=== PATIENT | female | born 1940 | race Caucasian/White ===

== ENCOUNTER 2022-05-18 08:19 | Observation (INO) ==
--- NOTE | 2022-04-21 10:09 | PAT Medication Instructions ---
Medication Instructions Date of Service April 21, 2022 Home Medications amlodipine 2.5 mg tablet 2.5 mg PO QAM aspirin 81 mg capsule 81 mg PO QAM calcium carb-vitamin D3 ER 600 mg (1,500 mg)-500 unit tablet,ER 24 hr 1 tab PO BID lisinopril 20 mg tablet 20 mg PO BID loratadine 10 mg tablet (Claritin) 10 mg PO QAM metoprolol succinate 50 mg tablet,extended release 24 hr 50 mg PO QPM sennosides 8.6 mg-docusate sodium 50 mg tablet (Senna Plus) 2 tab PO BID simvastatin 40 mg tablet 40 mg PO HS tramadol 50 mg tablet 50 mg PO BID DO NOT take the morning of surgery calcium carb-vitamin D3 ER 600 mg (1,500 mg)-500 unit tablet,ER 24 hr 1 tab PO BID lisinopril 20 mg tablet 20 mg PO BID loratadine 10 mg tablet (Claritin) 10 mg PO QAM sennosides 8.6 mg-docusate sodium 50 mg tablet (Senna Plus) 2 tab PO BID Take morning of surgery With a small sip of water, OTHERWISE NOTHING TO EAT OR DRINK AFTER MIDNIGHT: amlodipine 2.5 mg tablet 2.5 mg PO QAM aspirin 81 mg capsule 81 mg PO QAM (continue as normal unless told otherwise by surgeon) tramadol 50 mg tablet 50 mg PO BID Take evening before surgery calcium carb-vitamin D3 ER 600 mg (1,500 mg)-500 unit tablet,ER 24 hr 1 tab PO BID lisinopril 20 mg tablet 20 mg PO BID metoprolol succinate 50 mg tablet,extended release 24 hr 50 mg PO QPM sennosides 8.6 mg-docusate sodium 50 mg tablet (Senna Plus) 2 tab PO BID simvastatin 40 mg tablet 40 mg PO HS tramadol 50 mg tablet 50 mg PO BID Other Notes If you have any questions please call us at [phone] or [phone] or [phone] or [phone]
--- NOTE | 2022-04-22 09:17 | Anesthesiology Consultation ---
Date of Service April 22, 2022 Assessment & Plan (1) Encounter for pre-operative examination: - PCP office visit (02/24/22): "We did provide the patient with lab orders for CMP.. CBC.. urinalysis along with a chest xray. Once her lab analyses are completed as well as her cardiac consultation.. We will then be able to provide medical clearance for proposed surgery)" > CMP, CBC, urinalysis, chest x-ray done 02/25/2022 were unremarkable. - Cardiology office visit (03/02/22): " She has no evidence of volume overload or heart failure. Blood pressure is controlled. She also denies complaints of palpitations or episodes of SVT. Additional cardiac testing is not required prior to surgery.. whether or not to d/c ASA will be left to the surgeon's discretion.. Patient stable from a cardiac standpoint and would be considered low cardiac risk for planned surgery." - COVID screening: Per assessment on 04/22: No known COVID-19 positive contacts or current COVID-19 related symptoms. Travel screen negative. Patient vaccinated. Surgeon arranging preop COVID testing. Awaiting results. Chart Review Chart Review: Acceptable Risk for Surgery and Patient seen in Pre Admission Testing Teaching & Discussion Pre-Anesthesia Teaching/Discussion Notes: Instructed NPO after midnight before surgery,except medications with 15 cc of water. Medication instructions provided according to the PAT guidelines. History Surgery Operation Date: 05/18/22 13:10 Proposed Procedures p Left Total Knee Arthroplasty - Enrique Lantigua DO Height/Weight Height: 5 ft 6 in Weight: 68.5 kg Allergies Allergy/AdvReac Type Severity Reaction Status Date / Time adhesive Allergy Mild Skin Verified 04/22/22 09:08 redness Medications Home Medications Medication Instructions Recorded Confirmed Last Taken amlodipine 2.5 mg tablet 2.5 mg PO QAM 04/20/22 04/20/22 Unknown aspirin 81 mg capsule 81 mg PO QAM 04/20/22 04/20/22 Unknown calcium carb-vitamin D3 ER 600 mg 1 tab PO BID 04/20/22 04/20/22 Unknown (1,500 mg)-500 unit tablet,ER 24 hr lisinopril 20 mg tablet 20 mg PO BID 04/20/22 04/20/22 Unknown loratadine 10 mg tablet (Claritin) 10 mg PO QAM 04/20/22 04/20/22 Unknown metoprolol succinate 50 mg 50 mg PO QPM 04/20/22 04/20/22 Unknown tablet,extended release 24 hr sennosides 8.6 mg-docusate sodium 2 tab PO BID 04/20/22 04/20/22 Unknown 50 mg tablet (Senna Plus) simvastatin 40 mg tablet 40 mg PO HS 04/20/22 04/20/22 Unknown tramadol 50 mg tablet 50 mg PO BID 04/20/22 04/20/22 Unknown Past Medical History Medical History CAD (coronary artery disease) Mild non-obstructive per 2016 cardiac cath Follows with [facility] Depression 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 Hyperlipidemia Hypertension Osteoarthritis SVT (supraventricular tachycardia) Exercise / Class Metabolic Activity II 4-5 Yardwork/Stairs/Walk up hill Past Surgical History Surgical History History of anesthesia reaction Slow to wake (hip surgery) History of cardiac cath 2015 ([facility]) > no stents History of dilatation and curettage x2 History of total right hip arthroplasty 1996 Hx of cataract extraction R/L Hx of colonoscopy Past Anesthesia History No Family Hx of Anesthesia Complications and Other (Slow to wake (hip surgery)) History of PONV No Hx of PONV and No Hx of Motion Sickness Social History Smoking Status: Former smoker Do You Dip or Chew Tobacco: No Smoking End Date: Quit 1977 Hx Alcohol Use: Yes Alcohol type: wine alcohol intake frequency: holidays/special occasions only Hx Substance Use: No substance use type: does not use Review of Systems Patient denies chest pain, shortness of breath, dyspnea on exertion, reflux, cough, wheezing, palpitations. Physical Exam Vital Signs VITALS BP 133/74 P 74 TEMP 98.1 SP02 99%RA RESP 16 PHYSICAL Mildly decreased cervical extension range of motion. Full TMJ range of motion. TMD 3 finger breaths Mallampati Score 2 Dentition: intact Lungs: clear throughout to auscultation Cardiac: regular rate and rhythm, no murmurs noted Spine: normal Carotid arteries: negative bruit Extremities: left hand absent (congenital), no edema Lab Results Anesthesia Preop Results Results Anesthesia Widget: WBC 4.46 K/ul (4.8-10.8) L 04/22/22 Hgb 12.2 g/dl (12.0-16.0) 04/22/22 Hct 39.5 % (34.1-44.9) 04/22/22 Plt 246 K/uL (130-400) 04/22/22 Na 141 mmol/L (136-145) 04/22/22 K 4.2 mmol/L (3.5-5.1) 04/22/22 Cl 107 mmol/L (98-107) 04/22/22 CO2 28 mmol/L (21-32) 04/22/22 BUN 21 mg/dl (6-23) 04/22/22 Creat 0.77 mg/dl (0.6-1.2) 04/22/22 Glucose Level 129 mg/dl (70-99(Fasting)) H 04/22/22 PT 10.3 Seconds (9.0-12.0) 04/22/22 PTT 25.9 Seconds (21.0-31.0) 04/22/22 INR 1.0 (0.9-1.1) 04/22/22 HA1c 6.2 % (4.5-5.6) H 04/22/22 Urine Color Dark Yellow 04/22/22 Urine Appearance Clear (Clear) 04/22/22 Urine pH 5.0 (4.5-7.5) 04/22/22 Urine Specific [place] 1.023 (1.000-1.030) 04/22/22 Urine Protein Negative (Negative) 04/22/22 Urine Glucose (UA) Negative (Negative) 04/22/22 Urine Ketones Trace (Negative) H 04/22/22 Urine Blood Negative (Negative) 04/22/22 Urine Nitrite Negative (Negative) 04/22/22 Urine Bilirubin Negative (Negative) 04/22/22 Urine Urobilinogen Negative (Negative) 04/22/22 Urine Leukocyte Esterase Trace (Negative) H 04/22/22 Urine WBC (Auto) 1-5 /hpf (0-5) 04/22/22 Urine RBC (Auto) 0-4 /hpf (0-4) 04/22/22 Urine Hyaline Casts (Auto) 1-5 /lpf (0-5) 04/22/22 Urine Epithelial Cells (Auto) 20-30 /lpf (0-5) H 04/22/22 Urine Bacteria (Auto) Negative (Negative) 04/22/22 Blood Type A Positive 04/22/22 Antibody Screen NEGATIVE 04/22/22 Testing Electrocardiogram Date: 03/02/22 Sinus rhythm at 79 bpm. "Within normal limits " Chest X-Ray Date: 02/25/22 No evidence of active disease in the chest. Mild atherosclerotic calcification of the aortic arch and descending thoracic aorta. Mild biapical pleural- parenchymal scarring, greater on the right than left. Upper lobe predominant emphysematous changes. Hyperinflation of the lung [place] with flattening of marta phragms is suggestive of obstructive pulmonary physiology. Likely persistent atelectasis or chronic scarring. Mild to moderate multilevel degenerative changes of the thoracic spine. Mild osteoarthritic changes of the left glenohumeral joint. Echocardiogram Date: 11/29/21 EF 60%. No regional motion abnormality. No significant valvular disease. Stress Test Date: 06/09/16 Type: exercise Poor exercise tolerance. Positive ECG changes during treadmill stress. Stress echo negative for ischemia; not all mcdonald visualized. Baseline echo negative for prior infarct. Technically difficult study. Subsequent cardiac cath done 06/2016 with mild nonobstructive CAD. Cardiac Catheterization Date: 06/27/16 Minimal three-vessel coronary artery disease. Dominant RCA with mid 40%, Moderate PDA and large posterior lateral branch. Normal left main. LAD with transapical vessel, Large mid diagonal branch, Luminal irregularities. AV groove circumflex with large proximal marginal branch, luminal irregularities. Normal LV function. Mild aortic hypertension. Probably normal LVEDP. No aortic valve gradient. Intermittent episodes of SVT during coronary injections, some of which may have been associated with some chest pain. Comments: The patient is reassured from a coronary standpoint. She has minimal disease and should continue aspirin and statin therapy.
--- NOTE | 2022-04-26 08:16 | History & Physical Report ---
Date of Service April 26, 2022 date of surgery: 05/18/22 Procedure: Left Total Knee Arthroplasty Surgeon: Enrique Lantigua Assessment & Plan (1) Arthritis of knee, left: Plan: Further care discussed with patient and at this point in time has failed conservative measures and would like to proceed with a left total knee replacement. Plan on discharge will be home with home health physical therapy. DVT prophylaxiswith TEDs, SCDs and will also place on aspirin 81 mg p.o. b.i.d. for a month postop. Patient will have follow up appointment in our office two weeks post op for staple/suture removal and re-evaluation. Patient otherwise has no other questions or concerns. The risks and benefits have been discussed including, but not limited to, risk of infection, nerve injury, stiffness, loss of motion, failure to improve, etc. Reasonable outcomes and options of treatment were discussed. An explanation of appropriate alternatives to the procedure that may be advantageous were discussed and their risks and benefits, as well as the risks and benefits of not proceeding with treatment. I offered to answer any additional inquiries concerning the treatment involved. All the patient's questions were answered. The patient is agreeable, understanding of the treatment plan and alternatives, and wishes to proceed with the treatment plan. History of Present Illness Chief Complaint: left knee pain Primary Care Provider: Rose Mary Delgado MD Aurelia is an 82 year old female who complains of left knee pain, presents for pre-op evaluation prior to a left total knee replacement by dr Lantigua at [facility]. she complains of pain, decreased range of motion, instability and stiffness in her left knee. Currently the patient states that the symptoms are moderate- severe and rated as 7/10. The pain is described as aching, sharp and throbbing. Her symptoms are aggravated by ascending stairs, daily activities, first steps while awake walking. Prior NSAIDs include IBU and Aleve. she has been treated with previous visco injections in the past without much relief. Allergies Allergy/AdvReac Type Severity Reaction Status Date / Time adhesive Allergy Mild Skin Verified 04/22/22 09:08 redness Home Medications Medication Instructions Recorded Confirmed Type amlodipine 2.5 mg tablet 2.5 mg PO QAM 04/20/22 04/20/22 History aspirin 81 mg capsule 81 mg PO QAM 04/20/22 04/20/22 History calcium carb-vitamin D3 ER 600 mg 1 tab PO BID 04/20/22 04/20/22 History (1,500 mg)-500 unit tablet,ER 24 hr lisinopril 20 mg tablet 20 mg PO BID 04/20/22 04/20/22 History loratadine 10 mg tablet (Claritin) 10 mg PO QAM 04/20/22 04/20/22 History metoprolol succinate 50 mg 50 mg PO QPM 04/20/22 04/20/22 History tablet,extended release 24 hr sennosides 8.6 mg-docusate sodium 2 tab PO BID 04/20/22 04/20/22 History 50 mg tablet (Senna Plus) simvastatin 40 mg tablet 40 mg PO HS 04/20/22 04/20/22 History tramadol 50 mg tablet 50 mg PO BID 04/20/22 04/20/22 History Past Med/Surg History Medical History CAD (coronary artery disease) Mild non-obstructive per 2016 cardiac cath Follows with [facility] Depression 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 Hyperlipidemia Hypertension Osteoarthritis SVT (supraventricular tachycardia) Surgical History History of anesthesia reaction Slow to wake (hip surgery) History of cardiac cath 2015 ([facility]) > no stents History of dilatation and curettage x2 History of total right hip arthroplasty 1996 Hx of cataract extraction R/L Hx of colonoscopy Social History Smoking Status: Former smoker Second Hand Exposure: No; Hx Alcohol Use: Yes Alcohol type: wine Hx Substance Use: No Preferred Language: Citizen Of [place] Communication Ability: Effective Podiatrist Orthopedic Required: No Beliefs That Will Affect Care: None Current Living Situation: Alone Feels Safe at Home: Yes Assistive Devices: Glasses and Walker Review of Systems Review of Systems: All systems reviewed & are unremarkable except as noted in HPI & below Constitutional: no fever, no chills and no sweats Respiratory: no cough and no dyspnea Cardiovascular: no chest pain, no dyspnea and no orthopnea Gastrointestinal: no abdominal pain, no nausea and no vomiting Musculoskeletal: as per Subjective / HPI Physical Exam Physical Exam: HT: 5ft 6in WT: 68.5kg Constitutional: WD/WN, vitals as above no acute distress Respiratory: normal respiratory effort, lungs clear to auscultation no respiratory distress, no labored breathing and does not use accessory muscles Cardiovascular: RRR, no murmur, no edema Gastrointestinal (Abdomen): normal bowel sounds, soft, nontender, no hepatosplenomegaly Musculoskeletal: Knee: + knee abnormal to inspection (left knee: ), + effusion (+1 effusion), + limited ROM of knee (ROM 0/3/110), + knee ROM with crepitation, + joint line tenderness (medial joint line) and + Al's sign positive; no deformity, no skin erythema, no ecchymosis, no valgus laxity, no varus laxity, anterior drawer test negative, Janet's sign negative and pivot shift test nega tive Results & Data Results & Data ([facility]) Diagnostic Findings Left Knee X-ray: left knee series confirm advanced degenerative changes to the left knee, greatest medial compartments and patellofemoral joint, showing joint space narrowing, osteophyte formation and subchondral sclerosis. no acute bony pathology noted.
[~2022-05-18 08:19] MED LIST: ACETAMINOPHEN 500 MG TAB PO SCH; BUPIVACAINE 0.5 % 5 MG/1 ML PF 10ML VIAL ONE; CeleBREX 200 MG CAP PO SCH; FAMOTIDINE 20 MG TAB PO SCH; GABAPENTIN 300 MG CAP PO SCH; LR 500ML BOLUS, THEN 15ML/HR IV SCH; METOCLOPRAMIDE HCL 10 MG TABLET PO SCH; ROPIVACAINE 0.5% 5 MG/ML 30 ML VIAL ONE; ROPIVACAINE 0.5% HCL/PF 150 MG, BUPIVACAINE 0.75% MPF 20 ML, EPINEPHrine 30MG/30ML (OR ... INSTIL SCH; TRANEXAMIC ACID 1,000 MG **IV Intra-op IV SCH; TRANEXAMIC ACID 1,000 MG **IV Pre-op IV SCH; ceFAZolin 2000MG 2,000 MG/15 ML SYR IV SCH; dexAMETHasone 4 MG TAB PO SCH
--- NOTE | 2022-05-18 09:39 | History & Physical Bridge Note ---
Date of Service May 18, 2022 History & Physical Bridge Note I have examined the patient, reviewed the History & Physical and in the interval since the performance of the History & Physical I have noted the following changes of clinical significance: no changes noted
[2022-05-18] MEDS ORDERED: fentaNYL citrate 100 MCG/2 ML VIAL IV PRN (10:52)
[2022-05-18] MEDS ORDERED: ONDANSETRON INJ 2 MG/ML 2 ML VIAL IV PRN ×2 (10:52→15:58)
[2022-05-18] MEDS ORDERED: ATROPINE SULFATE 0.1 MG/ML 10ML SYR IV PRN (10:52)
[2022-05-18] MEDS ORDERED: ePHEDrine sulfate 50 MG/ML AMP IV PRN (10:52)
[2022-05-18] MEDS ORDERED: MIDAZOLAM HCL 1 MG/ML 2ML VIAL ONE (10:59)
[2022-05-18] MEDS ORDERED: ORTHO JOINT ANESTHETIC ONE (11:39)
[2022-05-18] MEDS ORDERED: PROPOFOL IV EMULSION 10 MG/ML 20 ML VIAL IV ONE (12:45)
--- NOTE | 2022-05-18 13:11 | Operative Report ---
Post Operative Report Pre & Post Diagnosis Operation Date: 05/18/22 11:00 Pre-Op Diagnosis: Left knee arthritis Post-Op Diagnosis: Left knee arthritis I identified the patient and participated in the time-out.: Yes Procedure Operation Date: 05/18/22 11:00 Actual Procedures p Left Total Knee Arthroplasty(Left) utilizing Brown & gripNote jourtruchas 2 patient matched total knee arthroplasty size femur 6 tibia for polyeleven patella 32- Enrique Lantigua DO Surgeon Enrique Lantigua DO Medical Photographer BELEN Romo Estimated Blood Loss 5 Findings Consistent with Post-Op Diagnosis Patient presents with severe end-stage DJD eburnated [id number] marginal osteophytes valgus alignment moderate to large effusion Specimens Bone and cartilage Drains Medium bore Hemovac Anesthesia Type MAC Spinal Regional Complications none Disposition Accompanied Patient To Recovery: No Disposition: Recovery Room Indications Patient presents with severe end-stage DJD after failed attempted conservative management with physical therapy anti-inflammatories relative rest corticosteroid injection viscosupplementation patient presents for left total knee arthroplasty Description of Procedure After proper prepping and draping of the left lower extremity anterior midline incision was made over the region of the extensor extensor mechanism after meticulous hemostasis was obtained and maintained in subcutaneous tissues a medial parapatellar incision was made The patella was subluxed lateralward the medial lateral gutter were cleaned from any hypertrophic synovitis and scar tissue of the distal femoral block was placed and the distal femoral osteotomy cut was made subsequently the chamfers anterior and posterior osteotomy cuts were made utilizing the 4-in-1 block the tibia was subsequently subluxed anteriorward medial and ateral meniscal remnants were excised in their entirety remnants of the anterior and posterior cruciate ligaments were excised in their entirety excellent exposure of the proximal tibia was obtained the tibial osteotomy guide was placed on the proximal tibial osteotomy cut was made once again the knee was irrigated with copious amounts of sterile saline solution the patella was subsequently everted lateralward thickened scar tissue around the patella was removed the patella was subsequently cut utilizing a freehand technique and was drilled prepared for final preparation and placement of patella socially flexion-extension gaps were checked and the equal and symmetric trials were placed to the appropriate femoral and tibial trials with poly-spacer being placed for equal flexion and extension gaps and full range of motion including extension to 0 and flexion to 140 the trial components after having been taken to recovery range of motion was subsequently removed meticulous hemostasis was obtained and maintained subsequently a knee block injection of joint cocktail including ropivacaine 0.5% 150 mg. Bupivacaine 0.5% epinephrine 1-200,030 mL's toradol 30 mg dexamethasone 4 mg ketamine 10 mg clonidine 100 micrograms normal saline solution 30 mg was infiltrated into the soft tissues of the posterior knee medial lateral gutters and periosteal synovium special attention was paid to protect neurovascular structures at all times subsequently trial components having been removed the knee was irrigated with sterile saline solution. debris was removed the proximal tibia was subsequently prepared and was made ready for the placement of the tibial component tibial component was also cemented and tamped into position the femoral component was subsequently placed and cemented in the position the patellar component was subsequently cemented in position because hemostasis once again obtained and maintained wound having been thoroughly irrigated with debridement and debridement lavage was performed as well as a medial parapatellar incision closed with #1 Vicryl in interrupted fashion subcutaneous was closed with #2 Vicryl skin was closed with skin clips. PA-C was necessary for prepping and drapping as well as wound closure of deep fascia Sub cutaneous tissue and skin and was necessary for the case. A sterile compressive dressing was placed patient was taken to recovery in stable condition of report dictated by Grzegorz I attest to the content of the Intraoperative Record and any orders documented therein. Any exceptions are noted below.Due to the complex nature of the procedure, the entire surgery was performed with the operational assistance of BELEN Romo. The planning assistant, under direct supervision, was involved in the actual performance of all aspects of the surgical procedure including hemostasis, tissue retraction and incision, instrument management, patient positioning, and wound closure. I attest to the content of the Intraoperative Record and any orders documented therein. Any exceptions are noted below.
--- NOTE | 2022-05-18 14:43 | XRay Report ---
XR knee LT 1 or 2V routine CLINICAL HISTORY: Surgical Post Op TECHNIQUE: 2 views of the left knee were obtained. Comparison: None available at the time of this dictation. FINDINGS: Patient is status post total knee arthroplasty with expected postsurgical changes including soft tiss ue swelling and subcutaneous emphysema. No periarticular lucency or hardware fracture is seen. IMPRESSION: Expected postoperative appearance status post placement of total knee arthroplasty. ACT 112: Negative or not required by law. Electronically signed by: Alexandru Bejarano M.D. 05/18/2022 2:42 PM
--- NOTE | 2022-05-18 14:49 | Anesthesiology Progress Note ---
Date of Service May 18, 2022 Anesthesia Post Procedure Vital Signs Vital Signs: Temp Pulse Pulse Resp BP Pulse Ox O2 Del Method 05/18/22 14:40 65 21 130/65 95 Room Air 05/18/22 14:30 36.6 C 68 14 146/77 H 95 Room Air 05/18/22 14:20 69 17 135/77 94 Room Air 05/18/22 14:10 70 21 145/74 H 95 Room Air 05/18/22 14:00 74 18 128/75 95 Room Air 05/18/22 13:53 36.6 C 69 19 122/66 95 Room Air 05/18/22 09:03 36.6 C 75 18 149/94 H 97 Room Air 05/18/22 09:03 Room Air Pain Intensity Right Arm: Pain Intensity: 4 Transfer of Care Handoff Completed per policy Notes Mental Status: alert / awake / arousable Patient Amnestic to Procedure: Yes Nausea / Vomiting: adequately controlled Pain: adequately controlled Airway Patency, RR, SpO2: stable & adequate BP & HR: stable & adequate Hydration State: stable & adequate Neuraxial Anesthesia: was administered and sensory block is resolving Anesthetic Complications: no major complications apparent
[2022-05-18] MEDS ORDERED: diphenhydrAMINE Capsule 25 MG CAP PO PRN (15:58)
[2022-05-18] MEDS ORDERED: bisacodyL 10 MG SUPP PR PRN (15:58)
[2022-05-18] MEDS ORDERED: METOCLOPRAMIDE HCL INJ 5 MG/ML 2 ML VIAL IV PRN (15:58)
[2022-05-18] MEDS ORDERED: oxyCODONE HCL IR 5 MG TAB (IMMEDIATE RELEASE) PO PRN (15:58)
[2022-05-18] MEDS ORDERED: HYDROmorphone INJ 0.5 MG/0.5 ML SYR IV PRN (15:58)
[2022-05-18] MEDS ORDERED: MAGNESIUM HYDROXIDE SUSP 30 ML UDC PO PRN (15:58)
[2022-05-18] MEDS ORDERED: NALOXONE HCL 0.4 MG/1 ML VIAL/CARP IV PRN (15:58)
[2022-05-18] MEDS: SODIUM CHLORIDE 0.9% 1000ML 1,000 ML IV SCH (17:18)
[2022-05-18] MEDS: KETOROLAC TROMETHAMINE 15 MG/ML VIAL IV SCH ×2 (17:18→20:54)
[2022-05-18] MEDS: ceFAZolin 2000MG 2,000 MG/15 ML SYR IV SCH (20:52)
[2022-05-18] MEDS: ASPIRIN 81 MG ECTAB PO SCH (20:53)
[2022-05-18] MEDS: CALCIUM 600MG + VIT D 400 IU TAB PO SCH (20:53)
[2022-05-18] MEDS: DOCUSATE SODIUM 100 MG CAP PO SCH (20:53)
[2022-05-18] MEDS: lisinopril 20 MG TAB PO SCH (20:54)
[2022-05-18] MEDS: ACETAMINOPHEN 500 MG TAB PO SCH (20:54)
[2022-05-18] MEDS ORDERED: SENNA 8.6 MG TAB PO SCH (21:00)
[2022-05-18] MEDS ORDERED: SIMVASTATIN 40 MG TAB PO SCH (21:00)
[2022-05-19] MEDS: SODIUM CHLORIDE 0.9% 1000ML 1,000 ML IV SCH (03:07)
[2022-05-19] MEDS: ACETAMINOPHEN 500 MG TAB PO SCH ×2 (05:05→13:34)
[2022-05-19] MEDS: KETOROLAC TROMETHAMINE 15 MG/ML VIAL IV SCH ×2 (05:05→09:28)
[2022-05-19] MEDS: ceFAZolin 2000MG 2,000 MG/15 ML SYR IV SCH (05:05)
[2022-05-19 07:35] LABS: Hematocrit (blood only) 35.6 % (34.1-44.9); Hemoglobin 11.3 g/dl (12.0-16.0); Mean Corpuscular Hemoglobin 27.1 pg (25.0-34.0); Mean Corpuscular Hgb Conc 31.7 g/dL (32.0-36.0); Mean Corpuscular Volume 85.4 fL (80.0-100.0); Mean Platelet Volume 10.8 fL (9.4-12.3); Platelet Count 206 K/uL (130-400); RDW Coefficient of Variation 13.9 % (11.5-14.5); RDW Standard Deviation 43.2 fL (36.4-46.3); Red Blood Count 4.17 M/uL (3.93-5.22); White Blood Count 10.29 K/ul (4.8-10.8)
[2022-05-19 08:03] LABS: Calcium 8.8 mg/dl (8.5-10.1); Creatinine Clr Calc Pharmacy 53.9 ml/min; Est GFR (African American) 86.8 ml/min; Est GFR (Non-African American) 74.9 ml/min; Potassium 3.8 mmol/L (3.5-5.1)
--- NOTE | 2022-05-19 08:21 | Orthopedic Progress Note ---
Date of Service May 19, 2022 Assessment & Plan (1) Arthritis of knee, left: Plan: Postop day 1 status post left total knee arthroplasty PT/OT protocols. Weightbearing as tolerated. DVT prophylaxis-aspirin p.o. twice daily, SCDs, EVELIN roberson. Pain management as written. DC planning-patient is planning on home health services upon discharge. Possible discharge home today pending PT progression Admission and Anticipated Discharge Date Admission Date: May 18, 2022 Subjective Postop day 1 Patient sitting up in bed awake and alert. No complaints this morning. Pain is controlled. Denies shortness of breath, chest pain, lightheadedness. Patient is hoping to go home today. Physical Exam Physical Exam: Dressings are clean, dry, and intact. Calves are soft nontender. Neurovascular is intact. Toes are mobile. She has good dorsif lexion and plantarflexion of the left foot. Hemovac drain has been removed secondary to low output. Results & Data ([facility]) Vital Signs (Past 12 Hours) Vital Signs Temp Pulse Resp BP Pulse Ox O2 Del Method 05/19/22 02:55 36.5 C 77 16 161/67 H 94 Room Air 05/18/22 20:50 Room Air 05/18/22 21:30 36.4 C L 72 16 112/60 96 Laboratory Results Laboratory Results WBC 10.29 K/ul (4.8-10.8) 05/19/22 07:15 RBC 4.17 M/uL (3.93-5.22) 05/19/22 07:15 Hgb 11.3 g/dl (12.0-16.0) L 05/19/22 07:15 Hct 35.6 % (34.1-44.9) 05/19/22 07:15 MCV 85.4 fL (80.0-100.0) 05/19/22 07:15 MCH 27.1 pg (25.0-34.0) 05/19/22 07:15 MCHC 31.7 g/dL (32.0-36.0) L 05/19/22 07:15 RDW Std Deviation 43.2 fL (36.4-46.3) 05/19/22 07:15 RDW Coeff of Kimmie 13.9 % (11.5-14.5) 05/19/22 07:15 Plt Count 206 K/uL (130-400) 05/19/22 07:15 MPV 10.8 fL (9.4-12.3) 05/19/22 07:15 Sodium 140 mmol/L (136-145) 05/19/22 07:15 Potassium 3.8 mmol/L (3.5-5.1) 05/19/22 07:15 Chloride 110 mmol/L (98-107) H 05/19/22 07:15 Carbon Dioxide 24 mmol/L (21-32) 05/19/22 07:15 Anion Gap 6 (3-11) 05/19/22 07:15 BUN 17 mg/dl (6-23) 05/19/22 07:15 Creatinine 0.74 mg/dl (0.6-1.2) 05/19/22 07:15 Est Cr Clr Drug Dosing 53.9 ml/min 05/19/22 07:15 Est GFR ( Amer) 86.8 ml/min 05/19/22 07:15 Est GFR (Non-Af Amer) 74.9 ml/min 05/19/22 07:15 BUN/Creatinine Ratio 23.0 (10-20) H 05/19/22 07:15 Glucose 126 mg/dl (70-99(Fasting)) H 05/19/22 07:15 Calcium 8.8 mg/dl (8.5-10.1) 05/19/22 07:15 SARS-CoV-2, RNA, NAAT NEGATIVE (NEGATIVE) 05/18/22 08:37 Impressions Knee X-Ray 05/18/22 14:03 XR knee LT 1 or 2V routine CLINICAL HISTORY: Surgical Post Op TECHNIQUE: 2 views of the left knee were obtained. Comparison: None available at the time of this dictation. FINDINGS: Patient is status post total knee arthroplasty with expected postsurgical changes including soft tissue swelling and subcutaneous emphysema. No periarticular lucency or hardware fracture is seen. IMPRESSION: Expected postoperative appearance status post placement of total knee arthroplasty. ACT 112: Negative or not required by law. Electronically signed by: Alexandru Bejarano M.D. 05/18/2022 2:42 PM
[2022-05-19] MEDS ORDERED: MULTIVITAMIN TAB PO SCH (09:00)
[2022-05-19] MEDS ORDERED: LORATADINE 10 MG TAB PO SCH (09:00)
[2022-05-19] MEDS ORDERED: amLODIPine BESYLATE 5 MG TAB PO SCH (09:00)
[2022-05-19] MEDS: ASPIRIN 81 MG ECTAB PO SCH (09:26)
[2022-05-19] MEDS: DOCUSATE SODIUM 100 MG CAP PO SCH (09:26)
[2022-05-19] MEDS: lisinopril 20 MG TAB PO SCH (09:27)
[2022-05-19] MEDS: CALCIUM 600MG + VIT D 400 IU TAB PO SCH (09:27)
[2022-05-19] MEDS ORDERED: METOPROLOL SUCC 50MG EXT REL TAB PO SCH (12:00)
[2022-05-19] MEDS ORDERED: CeleBREX 200 MG CAP PO SCH (21:00)
--- NOTE | 2022-05-20 07:08 | Discharge Summary ---
Date of Service date of discharge: May 19, 2022 date of admission: 05/18/22 Admission HPI Per Admitting Provider Aurelia is an 82 year old female who complains of left knee pain, presents for pre-op evaluation prior to a left total knee replacement by dr Lantigua at [facility]. she complains of pain, decreased range of motion, instability and stiffness in her left knee. Currently the patient states that the symptoms are moderate- severe and rated as 7/10. The pain is described as aching, sharp and throbbing. Her symptoms are aggravated by ascending stairs, daily activities, first steps while awake walking. Prior NSAIDs include IBU and Aleve. she has been treated with previous visco injections in the past without much relief. Principal Diagnosis left knee arthritis Discharge Exam Musculoskeletal left knee: NVDI, calf SNT, negative swati sign. DP palpable, able to wiggle toes/ankle movement without difficulty. ANGIE dressing clean dry and intact. expected post-operative bruising noted. Discharge Data Allergies Allergy/AdvReac Type Severity Reaction Status Date / Time adhesive Allergy Mild Skin Verified 05/18/22 08:59 redness Procedures Performed Operation Date: 05/18/22 11:00 Actual Procedures p Left Total Knee Arthroplasty(Left) - Enrique Lantigua DO Ordered Studies 05/18/22 05:00 US - OR guided needle placemen Routine Hospital Course (1) Arthritis of knee, left: Postop day 1 status post left total knee arthroplasty PT/OT protocols. Weightbearing as tolerated. DVT prophylaxis-aspirin p.o. twice daily, SCDs, EVELIN hose. Pain management as written. DC planning-patient is planning on home health services upon discharge. Possible discharge home today pending PT progression Total Time Total Time Spent Total Time Spent (In Minutes): 20 Discharge Plan Discharge Items Patient Disposition: Home - Home Health Services Reason For Visit: Osteoarthritis, Left Knee Discharge Diagnosis: LEFT TOTAL KNEE REPLACEMENT Activity: Per Instructions section Lifting: Wait until after follow-up appointment Weightbearing: Left weightbearing Weightbearing Comment: As tolerated with walker Non-emergency contact: Surgeon Call non-emergency contact if: you have any medication questions, your temperature is above 101, your wound has increased redness, your wound has increased drainage and your wound pain has increased Follow-up/Referrals: Enrique Lantigua DO [Surgeon] - (Follow-up with Dr. Lantigua in 2 weeks from the day of your surgery for your first postoperative visit.) Dayo Jean, DO [Primary Care Provider] - Diet: Regular Addtl Attending Provider Instructions: ACTIVITY RECOMMENDATIONS: SELF CARE INSTRUCTIONS AFTER TOTAL KNEE REPLACEMENT A. You may need to continue a physical therapy program after discharge from the hospital. There are several options available to you. Your doctor will assist you in selecting the best one for you. 1. An out-patient facility 2 to 3 times a week for therapy or home therapy. 2. Continue working on all exercises taught to you in the hospital. Your goals should be to increase bending of your knee to 90 degrees and beyond and to fully straighten your knee. B. You may progress at your own pace from walking with a walker or crutches to a cane; then to no assistive devices. C. Make walking a part of your daily routine. Be up as much as comfortable with rest periods throughout the day. Rest with leg elevation is very important. Use the ice wrap frequently for the first 3-4 weeks. D. There are no restrictions on activities. You may ride in a car, shop, participate in marriage and family teacher and all social activities. E. Wear the long elastic stockings (EVELIN hose) 20 hours a day for 2 weeks after surgery. They can be removed several times a day for laundering and for a bath. F. You may shower, no tub baths until cleared by your doctor. SPECIAL CARE INSTRUCTIONS: VERY IMPORTANT TO READ AND REVIEW A. There are a few signs you need to watch for after you are home. Call [facility] if you notice any of the followin. Increased severe knee pain. Some pain is expected especially when you exercise. 2. Increased swelling in your leg or knee; pain or swelling of the calf muscle in either lower leg. 3. Any fluid drainage from the incision. 4. Shortness of breath or chest pain. B. Please call [facility] at if you have any concerns or questions about your operation or recovery. The doctor or his nurse will return your call promptly. C. You must take antibiotics before dental work, bladder, bowel or other surgery. Your doctor will provide you with a permanent care to carry describing this precaution. IMPORTANT: * REMEMBER TO TAKE ASPIRIN, 81 MG, TWICE DAILY FOR 4 WEEKS UNLESS OTHERWISE DIRECTED. THIS IS YOUR BLOOD THINNER. * HIGH RISK PATIENTS MAY BE PRESCRIBED A STRONGER BLOOD THINNER. THIS WILL BE PROVIDED AT DISCHARGE. * CALL IF INCREASED PAIN, REDNESS, DRAINAGE OR FEVER GREATER THAT 101. * WEAR EVELIN HOSE 20 HOURS PER DAY FOR 2 WEEKS. * ANGIE Dressing- This is a large suction dressing covering your incision. This will help pull any excess drainage from the wound and allow your incision to heal properly. You may shower with this if you can keep the unit outside of the shower. If any bleeding or leakage is noted please call your doctor's office. This will remain on your incision for 7 days and then should be removed. This can be done yourself or by the home nursing staff if applicable. The entire unit is disposable once removed. Once removed, keep incision clean and dry. If redness or drainage is noted, please call your surgeon. ONCE ANGIE IS REMOVED, FOLLOW THESE INSTRUCTIONS: DERMABOND Prineo- This is a mesh tape dressing that is covered with glue. It should remain in place until the incision is properly healed, usually 10-14 days. This dressing is designed to naturally slough off. You may trim the excess mesh tape as it peels off. Incision may be briefly wet in a shower. Dry immediately by blotting with a clean, dry towel. Do not bath or swim until instructed by your doctor. Do not scratch, rub, or pick at the dressing. Do not apply any topical ointments or lotions until dressing is completely removed and/or instructed by your doctor. There may be a small piece of suture material at one end of your incision. Do not pull or trim this. If it is bothersome or catching on clothing, you may cover it with a band-aid. IF INCISION IS LEAKING THROUGH DRESSING, CALL THE OFFICE . FOLLOW UP VISIT: If appointment is not already scheduled: Please call [facility] to make a follow-up appointment for 2 weeks after your surgery at . Pending Studies at Discharge: No Stand-Alone Forms: My [employer], Smoking Cessation Medications and DC Order Prescriptions: New acetaminophen [Tylenol Extra Strength] 500 mg Tablet 1,000 mg PO Q8 14 Days Qty: 84 0RF aspirin 81 mg Tablet,Delayed Release (Dr/Ec) 81 mg PO BID 30 Days Qty: 60 0RF cefadroxil 500 mg capsule 500 mg PO BID Qty: 28 1RF polyethylene glycol 3350 [Miralax] 17 gram powder in packet 17 g PO DAILY PRN (Reason: constipation) Qty: 5 0RF oxycodone 5 mg tablet 5 mg PO Q4H MDD 6 PRN (Reason: pain) Qty: 30 0RF Continued metoprolol succinate 50 mg Tablet Extended Release 24 Hr 50 mg PO QPM Rx Instructions: @1200. lisinopril 20 mg Tablet 20 mg PO BID sennosides-docusate sodium [Senna Plus] 8.6-50 mg Tablet 2 tab PO BID amlodipine [Norvasc] 2.5 mg Tablet 2.5 mg PO DAILY simvastatin 40 mg Tablet 40 mg PO HS loratadine [Claritin] 10 mg Tablet 10 mg PO QAM calcium carbonate-vitamin D3 600 mg(1,500mg) -500 unit Tablet Extended Release 24 Hr 1 tab PO BID Discontinued tramadol 50 mg Tablet 50 mg PO BID aspirin 81 mg Capsule 81 mg PO QAM Discharge Orders: Discharge Order (Routine); Ordered 05/19/22 Ordered By: Armani Artis Admission Data Admit Date/Time: 05/18/22 14:03 Attending Provider: Enrique Lantigua Admit Provider: Enrique Lantigua Primary Care Provider: Dayo Jean. Other Interventions: Discharge Summary Assessment (RN) Last Done: 05/19/22 11:43
== END 2022-05-19 13:57 | disposition home health service (06) ==
LOC: ASU 08:19 → 3E 08:19